=== PATIENT | female | born 1965 | race Caucasian/White ===

== ENCOUNTER 2018-09-01 12:28 | Emergency (ER) | payer MEDICAID, OTHER ==
[~2018-09-01] VITALS: Ht 170.2 cm; Wt 84.2 kg
[~2018-09-01 12:28] MED LIST: FLUT1DIS IH
[2018-09-01] MEDS ORDERED: SODIUM CHLORIDE 0.9% 1,000 ML IV ONE (13:10)
[2018-09-01] MEDS ORDERED: KETOROLAC 30 MG/1 ML IVPush ONE (13:30)
[2018-09-01] MEDS ORDERED: SODIUM CHLORIDE 0.9% 1,000ML IVBOLUS ONE (13:30)
[2018-09-01] MEDS ORDERED: SODIUM CHLORIDE FLUSH 10ML SYR IVF ONE (13:30)
[2018-09-01] MEDS ORDERED: KETOROLAC 30 MG/1 ML ONE (13:32)
[2018-09-01 13:39] LABS: BASOPHILS # (AUTO) 0.04 x10^3/uL (0-0.1); BASOPHILS % (AUTO) 0 % (0-1); EOSINOPHILS # (AUTO) 0.02 x10^3/uL (0-0.4); EOSINOPHILS % (AUTO) 0 % (1-7); LYMPHOCYTES # (AUTO) 1.23 x10^3/uL (1-3.4); LYMPHOCYTES % (AUTO) 11 % (22-44); MD NO; MEAN CORPUSCULAR HEMOGLOBIN 28.4 pg (27.0-34.8); MEAN CORPUSCULAR HGB CONC 33.7 g/dL (32.4-35.8); MEAN CORPUSCULAR VOLUME 84.3 fL (80-100); MEAN PLATELET VOLUME 9.2 fL (7.4-10.4); MONOCYTES # (AUTO) 0.75 x10^3/uL (0.2-0.8); MONOCYTES % (AUTO) 7 % (2-9); NEUTROPHILS # (AUTO) 9.27 x10^3/uL (1.8-6.8); NEUTROPHILS % (AUTO) 82 % (42-75); PLATELET COUNT 273 x10^3/uL (130-400); RED BLOOD COUNT 5.09 x10^6/uL (3.82-5.3); RED CELL DISTRIBUTION WIDTH 14.7 % (9.6-15.2)
[2018-09-01] MEDS ORDERED: FLUT1DIS3 INH (13:42)
[2018-09-01] MEDS ORDERED: ALBU18HF INH (13:43)
[2018-09-01] MEDS ORDERED: EPIPEN (13:43)
[2018-09-01] MEDS ORDERED: FLUT16SP NAS (13:44)
[2018-09-01 13:51] LABS: ALBUMIN 3.4 g/dL (3.4-5.0); ANION GAP 9 mmol/L (5-15); CALCIUM 8.4 mg/dL (8.5-10.1); CHLORIDE 106 mmol/L (98-107)
[2018-09-01] MEDS ORDERED: HYDROcodone/APAP 5/325 TABLET ONE (13:52)
[2018-09-01 13:56] LABS: ALANINE AMINOTRANSFERASE 18 U/L (12-78); ALKALINE PHOSPHATASE 56 U/L (45-117); BILIRUBIN,TOTAL 0.5 mg/dL (0.2-1.0); CREATININE 0.89 mg/dL (0.55-1.02); TOTAL PROTEIN 7.6 g/dL (6.4-8.2); TROPONIN I < 0.015 ng/mL (0.000-0.045)
[2018-09-01] MEDS ORDERED: HYDROcodone/APAP 5/325 TABLET PO ONE (14:00)
[2018-09-01 14:35] LABS: RAPID INFLUENZA A Negative (Negative); RAPID INFLUENZA B Negative (Negative)
[2018-09-01] MEDS ORDERED: OMNIPAQUE 350 MG/ML, 100ML BOTTLE ONE (15:27)
[2018-09-01 16:13] VITALS: BP 122/76
== END 2018-09-01 16:56 | disposition home or self-care (01) ==
LOC: ED 16:36
DX: J01.10 Acute frontal sinusitis, unspecified (principal); J01.00 Acute maxillary sinusitis, unspecified
CPT/HCPCS: 36415; 71046; 71275; 80053; 83605; 83880; 84484; 85025; 85379; 87400; 93005; 99285; J7030; Q9967

== ENCOUNTER 2019-05-23 08:30 | Emergency (ER) | payer OTHER ==
[~2019-05-23] VITALS: Ht 170.2 cm; Wt 84.0 kg
[2019-05-23 08:42] VITALS: BP 158/105
== END 2019-05-23 10:37 | disposition home or self-care (01) ==
LOC: ED 10:30
DX: S63.522A Sprain of radiocarpal joint of left wrist, initial encounter (principal); Z87.891 Personal history of nicotine dependence; W01.0XXA Fall on same level from slipping, tripping and stumbling without subsequent striking against object, initial encounter; Y93.89 Activity, other specified; Y92.410 Unspecified street and highway as the place of occurrence of the external cause; Y99.8 Other external cause status
CPT/HCPCS: 29125; 99283

== ENCOUNTER 2020-11-15 08:10 | Emergency (ER) | payer MEDICAID, OTHER ==
[~2020-11-15] VITALS: Ht 170.2 cm; Wt 97.7 kg
[~2020-11-15 08:10] MED LIST changes: +ALBU18HF INH; +EPIPEN; +FLUT16SP24 NAS; +FLUT1DIS3 INH
--- NOTE | 2020-11-15 08:24 | NUR ---
EKG COMPLETED IN TRIAGE
[2020-11-15 09:04] LABS: BASOPHILS % (AUTO) 1 % (0-1); EOSINOPHILS % (AUTO) 8 % (1-7); LYMPHOCYTES % (AUTO) 30 % (22-44); MEAN CORPUSCULAR HEMOGLOBIN 29.5 pg (27.0-34.8); MEAN CORPUSCULAR HGB CONC 33.3 g/dL (32.4-35.8); MEAN PLATELET VOLUME 8.8 fL (7.4-10.4); MONOCYTES % (AUTO) 8 % (2-9); NEUTROPHILS % (AUTO) 52 % (42-75); PLATELET COUNT 265 x10^3/uL (130-400); RED BLOOD COUNT 4.91 x10^6/uL (3.82-5.3); RED CELL DISTRIBUTION WIDTH 14.8 % (9.6-15.2)
[2020-11-15 09:06] LABS: MD NO
[2020-11-15 09:08] LABS: ALANINE AMINOTRANSFERASE 40 U/L (12-78); ALBUMIN 3.5 g/dL (3.4-5.0); ANION GAP 6 mmol/L (5-15); CALCIUM 8.4 mg/dL (8.5-10.1); CHLORIDE 109 mmol/L (98-107); CREATININE 0.83 mg/dL (0.55-1.02)
[2020-11-15 09:13] LABS: ALKALINE PHOSPHATASE 54 U/L (45-117); BILIRUBIN,TOTAL 0.4 mg/dL (0.2-1.0); TOTAL PROTEIN 7.9 g/dL (6.4-8.2); TROPONIN I < 0.015 ng/mL (0.000-0.045)
[2020-11-15 10:19] VITALS: BP 141/72
== END 2020-11-15 10:21 | disposition home or self-care (01) ==
LOC: ED 09:24
DX: R07.89 Other chest pain (principal); R06.02 Shortness of breath; I10 Essential (primary) hypertension; J45.909 Unspecified asthma, uncomplicated; Z87.891 Personal history of nicotine dependence
CPT/HCPCS: 36415; 71045; 80053; 84484; 85025; 93005; 99285